=== PATIENT | male | born 1955 | race African-American/Black ===

== ENCOUNTER 2024-12-31 13:25 | Inpatient (IN) | payer MEDICARE, MEDICAID ==
[~2024-12-31] VITALS: Ht 182.9 cm; Wt 70.3 kg
[2024-12-31] MEDS ORDERED: Z GUARD REMEDY 4 OZ OINT TP PRN (14:30)
[2024-12-31 14:48] LABS: BASOPHILS % (AUTO) 0.8 % (0.0-2.0); EOSINOPHILS # (AUTO) 0.1 K/uL (0.0-0.7); EOSINOPHILS % (AUTO) 0.8 % (0.0-6.0); HEMATOCRIT 30 % (39-51); HEMOGLOBIN 9.9 g/dL (13.5-17.5); LYMPHOCYTES # (AUTO) 1.7 K/uL (0.8-4.8); LYMPHOCYTES % (AUTO) 25.8 % (20.0-44.0); MEAN CORPUSCULAR HEMOGLOBIN 31 PG (26.0-33.0); MEAN CORPUSCULAR HGB CONC 34 g/dl (31.0-36.0); MEAN CORPUSCULAR VOLUME 94 fL (80-96); MONOCYTES # (AUTO) 0.8 K/uL (0.1-1.30); MONOCYTES % (AUTO) 12.6 % (2.0-12.0); NEUTROPHILS # (AUTO) 3.9 K/uL (1.8-8.9); PLATELET COUNT (AUTO) 338 K/uL (150-450); RED BLOOD CELL COUNT(AUTO) 3.16 MIL/uL (4.5-6.0); RED CELL DISTRIBUTION WIDTH 15.7 % (11.5-15.0); WHITE BLOOD COUNT (AUTO) 6.5 K/uL (4.3-11.0)
[2024-12-31 14:57] LABS: CREATININE 1.1 mg/dL (0.6-1.3); POTASSIUM 4.5 mmol/L (3.5-5.1)
[2024-12-31] MEDS: ONDANSETRON HCL/PF 4 MG/2 ML VIAL IVP PRN (15:12)
[2024-12-31] MEDS: MAG HYDROX/AL HYDROX/SIMETH 30 ML UDC PO PRN (15:13)
[2024-12-31] MEDS: MAGNESIUM HYDROXIDE 30 ML UDC PO PRN (15:23)
[2024-12-31] MEDS: ACETAMINOPHEN 325 MG TABLET PO PRN (15:24)
[2024-12-31 18:32] VITALS: O2SAT 97
[2024-12-31 20:00] VITALS: BP 91/57; TEMP 98.1; O2SAT 99
[2025-01-01 07:42] LABS: BASOPHILS % (AUTO) 0.6 % (0.0-2.0); EOSINOPHILS # (AUTO) 0.1 K/uL (0.0-0.7); EOSINOPHILS % (AUTO) 1.8 % (0.0-6.0); HEMATOCRIT 28 % (39-51); HEMOGLOBIN 9.6 g/dL (13.5-17.5); LYMPHOCYTES # (AUTO) 2.9 K/uL (0.8-4.8); LYMPHOCYTES % (AUTO) 46.5 % (20.0-44.0); MEAN CORPUSCULAR HEMOGLOBIN 31 PG (26.0-33.0); MEAN CORPUSCULAR HGB CONC 34 g/dl (31.0-36.0); MEAN CORPUSCULAR VOLUME 92 fL (80-96); MONOCYTES # (AUTO) 0.8 K/uL (0.1-1.30); MONOCYTES % (AUTO) 13.2 % (2.0-12.0); NEUTROPHILS # (AUTO) 2.4 K/uL (1.8-8.9); NEUTROPHILS % (AUTO) 37.9 % (43.0-81.0); PLATELET COUNT (AUTO) 338 K/uL (150-450); RED BLOOD CELL COUNT(AUTO) 3.07 MIL/uL (4.5-6.0); RED CELL DISTRIBUTION WIDTH 15.1 % (11.5-15.0); WHITE BLOOD COUNT (AUTO) 6.3 K/uL (4.3-11.0)
[2025-01-01 08:00] VITALS: BP 97/76; TEMP 97.7; O2SAT 94
[2025-01-01 09:22] LABS: MAGNESIUM 2.6 mg/dL (1.8-2.4); PHOSPHORUS 2.8 mg/dL (2.5-4.9); POTASSIUM 4.7 mmol/L (3.5-5.1)
[2025-01-01 16:00] VITALS: BP 111/64; TEMP 93.4; O2SAT 95
[2025-01-01 20:00] VITALS: BP 112/60; TEMP 97.9; O2SAT 97
[2025-01-02 06:19] LABS: BASOPHILS % (AUTO) 0.9 % (0.0-2.0); EOSINOPHILS # (AUTO) 0.1 K/uL (0.0-0.7); EOSINOPHILS % (AUTO) 1.7 % (0.0-6.0); HEMATOCRIT 28 % (39-51); HEMOGLOBIN 9.3 g/dL (13.5-17.5); LYMPHOCYTES # (AUTO) 2.6 K/uL (0.8-4.8); LYMPHOCYTES % (AUTO) 45.1 % (20.0-44.0); MEAN CORPUSCULAR HEMOGLOBIN 31 PG (26.0-33.0); MEAN CORPUSCULAR HGB CONC 33 g/dl (31.0-36.0); MEAN CORPUSCULAR VOLUME 92 fL (80-96); MONOCYTES # (AUTO) 0.8 K/uL (0.1-1.30); MONOCYTES % (AUTO) 13.9 % (2.0-12.0); NEUTROPHILS # (AUTO) 2.2 K/uL (1.8-8.9); NEUTROPHILS % (AUTO) 38.4 % (43.0-81.0); PLATELET COUNT (AUTO) 324 K/uL (150-450); RED BLOOD CELL COUNT(AUTO) 3.02 MIL/uL (4.5-6.0); RED CELL DISTRIBUTION WIDTH 14.8 % (11.5-15.0); WHITE BLOOD COUNT (AUTO) 5.7 K/uL (4.3-11.0)
[2025-01-02 06:52] LABS: CALCIUM, SERUM 9.8 mg/dL (8.5-10.1); CREATININE 0.8 mg/dL (0.6-1.3); POTASSIUM 4.8 mmol/L (3.5-5.1)
[2025-01-02 08:00] VITALS: BP 111/69; TEMP 98.1; O2SAT 90
[2025-01-02 16:00] VITALS: BP_SYST 111; BP_SYST 117; BP_DIAS 64; BP_DIAS 65; TEMP 93.4; TEMP 97.9; O2SAT 95; O2SAT 96
[2025-01-02 20:00] VITALS: BP 110/64; TEMP 97.7; O2SAT 100
[2025-01-02] MEDS: TEMAZEPAM 7.5 MG CAPSULE PO PRN (23:06)
[2025-01-03 08:00] VITALS: BP 118/73; TEMP 97.7; O2SAT 100
[2025-01-03] MEDS ORDERED: TEMA7.5C PO (08:02)
[2025-01-03] MEDS ORDERED: ACET325T53 PO (08:02)
[2025-01-03 12:20] VITALS: TEMP 97.7
== END 2025-01-03 16:25 | DRG 640 ==
LOC: ER 13:45 → MED 16:22
PROVIDERS: ADMIT Internal Medicine; ATTEND Internal Medicine
DX: E86.0 Dehydration (principal); G93.41 Metabolic encephalopathy; Z86.73 Personal history of transient ischemic attack (TIA), and cerebral infarction without residual deficits; R62.7 Adult failure to thrive; R79.89 Other specified abnormal findings of blood chemistry; D64.9 Anemia, unspecified; Z85.810 Personal history of malignant neoplasm of tongue
CPT/HCPCS: 36415; 80048-TC; 83735-TC; 84100-TC; 85025-TC; 97112-TC; 97116-TC; 97530-TC; G0378; J2405